=== PATIENT | male | born 2000 | race Hispanic/Latino ===

== ENCOUNTER 2020-03-21 01:50 | Emergency (ER) | payer SELFPAY ==
[2020-03-21] MEDS ORDERED: TETANUS & DIPHTHERIA TOX,ADULT 0.5 ML VIAL ONE (02:30)
[2020-03-21] MEDS ORDERED: LIDOCAINE 1% W/EPI 1:100,000 MDV 20 ML VIAL ONE (03:02)
[2020-03-21] MEDS ORDERED: LIDOCAINE 1% MPF 30 ML VIAL ONE (03:46)
--- NOTE | 2020-03-21 04:06 | ER ---
Nurse's Notes [facility] Name: Soren Castro Age: 19 yrs Sex: Male : 2000 Arrival Date: 03/21/2020 Time: 01:51 Bed 20 Private MD: Diagnosis: Left Leg Laceration Presentation: 03/21 01:58 Chief complaint: Patient states: he cut his left leg cutting a tree on an emergency bb call approx 90 mins ago he states his girlfriend made him come he is not sure if it needs stitches. Coronavirus screen: At this time, the client does not indicate any symptoms associated with coronavirus-19. Ebola Screen: No symptoms or risks identified at this time. Complicating Factors: There are no complicating factors for this patient. Initial Sepsis Screen: Does the patient meet any 2 criteria? No. Patient's initial sepsis screen is negative. Does the patient have a suspected source of infection? No. Patient's initial sepsis screen is negative. Risk Assessment: Do you want to hurt yourself or someone else? Patient reports no desire to harm self or others. Onset of symptoms was March 21, 2020. 01:58 Method Of Arrival: Ambulatory bb 01:58 Acuity: SANTOS 3 bb Triage Assessment: 02:01 General: Appears in no apparent distress. Behavior is calm, cooperative. Pain: Denies bb pain. Injury Description: Laceration sustained to left vogel is 2.6 to 7.5 cm long, not bleeding, was sustained 1-2 hours ago. Historical: - Allergies: 02:00 No Known Allergies; bb - Home Meds: 02:00 None [Active]; bb - PMHx: 02:00 None; bb - PSHx: 02:00 None; bb - Immunization history:: Adult Immunizations up to date, Last tetanus immunization: unknown. - Social history:: Smoking status: Patient reports the use of cigarette tobacco products, smokes one-half pack cigarettes per day, Patient uses alcohol, occasionally. Patient/guardian denies using street drugs. Screenin:02 Abuse screen: Denies threats or abuse. Nutritional screening: No deficits noted. jb4 Tuberculosis screening: No symptoms or risk factors identified. Fall Risk None identified. Assessment: 02:01 General: Appears in no apparent distress. comfortable, Behavior is calm, cooperative, jb4 appropriate for age. Pain: Denies pain. Neuro: Level of Consciousness is awake, alert, obeys commands, Oriented to person, place, time, situation. Cardiovascular: Patient's skin is warm and dry. Respiratory: Airway is patent Respiratory effort is even, unlabored, Respiratory pattern is regular, symmetrical. GI: No signs and/or symptoms were reported involving the gastrointestinal system. : No signs and/or symptoms were reported regarding the genitourinary system. EENT: No signs and/or symptoms were reported regarding the EENT system. Derm: Skin is pink, warm \\T\\ dry. Musculoskeletal: Circulation, motion, and sensation intact. Range of motion: intact in all extremities. Injury Description: Laceration is clean, 2.6 to 7.5 cm long, not bleeding, was sustained 1-2 hours ago. is bleeding a small amount. 02:20 Reassessment: wound care performed, steri strips applied to wound. Pt states " I think jb4 I will just go ahead and get the stitches." provider notified. 02:54 Reassessment: Patient appears in no apparent distress at this time. Patient and/or jb4 family updated on plan of care and expected duration. Pain level reassessed. Patient is alert, oriented x 3, equal unlabored respirations, skin warm/dry/pink. 03:26 Reassessment: Patient and/or family updated on plan of care and expected duration. Pain bb level reassessed. Patient is alert, oriented x 3, equal unlabored respirations, skin warm/dry/pink. 04:22 Reassessment: Patient is alert, oriented x 3, equal unlabored respirations, skin bb warm/dry/pink. bandage clean, dry and intact. Pt verbalized understanding of and agrees to plan of care discharge instructions given pt ambulated with steady gait to exit. Vital Signs: 01:58 BP 148 / 99; Pulse 80; Resp 14 S; Temp 99(TE); Pulse Ox 100% ; Weight 65.77 kg (R); bb Height 5 ft. 6 in. (167.64 cm) (R); Pain 0/10; 02:54 BP 127 / 85; Pulse 77; Resp 16; Pulse Ox 100% on R/A; Pain 0/10; jb4 03:26 BP 118 / 77; Pulse 65; Resp 14 S; Pulse Ox 100% on R/A; bb 01:58 Body Mass Index 23.40 (65.77 kg, 167.64 cm) bb ED Course: 01:51 Patient arrived in ED. am2 01:56 Srinivasa Trotter MD is Attending Physician. 7 01:56 Joey Orozco, RN is Primary Nurse. jb4 02:00 Triage completed. bb 02:00 Arm band placed on Patient placed in an exam room, on a stretcher, on pulse oximetry. bb 02:46 Tib Fib Left XRAY In Process Unspecified. EDMS 03:27 Patient has correct armband on for positive identification. Bed in low position. Call bb light in reach. 03:27 Warm blanket given. bb 04:23 No provider procedures requiring assistance completed. Patient did not have IV access bb during this emergency room visit. Administered Medications: 02:17 Not Given (Duplicate Order): Tetanus-Diphtheria Toxoid Adult 0.5 ml IM once jb4 02:30 Drug: Tetanus-Diphtheria Toxoid Adult 0.5 ml {Wet Pour Mixer: [employer]. Exp: jb4 07/16/2021. Lot #: [id number]. } Route: IM; Site: right deltoid; 04:22 Follow up: Response: No adverse reaction bb Outcome: 04:06 Discharge ordered by . javon 04:23 Discharged to home ambulatory. bb 04:23 Condition: stable 04:23 Discharge instructions given to patient, Instructed on discharge instructions, follow up and referral plans. medication usage, Demonstrated understanding of instructions, follow-up care, medications, Prescriptions given X 1. 04:24 Patient left the ED. bb Signatures: Dispatcher [employer] EDND Kami Do RN RN Joey Walters, RN RN jb4 Nicole Viramontes 2 Srinivasa Trotter MD MD mh7
--- NOTE | 2020-03-21 04:06 | EDPHYS ---
Physician Documentation [facility] Name: Soren Castro Age: 19 yrs Sex: Male : 2000 Arrival Date: 03/21/2020 Time: 01:51 Bed 20 Private MD: ED Physician Srinivasa Trotter HPI: 03/21 02:17 This 19 yrs old Male presents to ER via Ambulatory with complaints of mh7 Laceration To Leg. 02:17 The patient has a laceration related to: working, cutting trees, occurred at work, and mh7 hit by tree branch The injury was accidental. The laceration(s) is(are) located on the left vogel. Onset: The symptoms/episode began/occurred today. Associated signs and symptoms: Pertinent negatives: deformity, dizziness, heavy bleeding, loss of consciousness, numbness distal to injury. Historical: - Allergies: 02:00 No Known Allergies; bb - Home Meds: 02:00 None [Active]; bb - PMHx: 02:00 None; bb - PSHx: 02:00 None; bb - Immunization history:: Adult Immunizations up to date, Last tetanus immunization: unknown. - Social history:: Smoking status: Patient reports the use of cigarette tobacco products, smokes one-half pack cigarettes per day, Patient uses alcohol, occasionally. Patient/guardian denies using street drugs. ROS: 02:17 Constitutional: Negative for fever, chills, and weight loss, Eyes: Negative for injury, mh7 pain, redness, and discharge, ENT: Negative for injury, pain, and discharge, Neck: Negative for injury, pain, and swelling, Cardiovascular: Negative for chest pain, palpitations, and edema, Respiratory: Negative for shortness of breath, cough, wheezing, and pleuritic chest pain, Abdomen/GI: Negative for abdominal pain, nausea, vomiting, diarrhea, and constipation, Back: Negative for injury and pain, : Negative for injury, bleeding, discharge, and swelling, Neuro: Negative for headache, weakness, numbness, tingling, and seizure, Psych: Negative for depression, anxiety, suicide ideation, homicidal ideation, and hallucinations, Allergy/Immunology: Negative for hives, rash, and allergies, Endocrine: Negative for neck swelling, polydipsia, polyuria, polyphagia, and marked weight changes, Hematologic/Lymphatic: Negative for swollen nodes, abnormal bleeding, and unusual bruising. Exam: 02:17 Constitutional: This is a well developed, well nourished patient who is awake, alert, mh7 and in no acute distress. Head/Face: Normocephalic, atraumatic. Chest/axilla: Normal chest wall appearance and motion. Nontender with no deformity. No lesions are appreciated. Cardiovascular: Regular rate and rhythm with a normal S1 and S2. No gallops, murmurs, or rubs. Normal PMI, no JVD. No pulse deficits. Respiratory: Lungs have equal breath sounds bilaterally, clear to auscultation and percussion. No rales, rhonchi or wheezes noted. No increased work of breathing, no retractions or nasal flaring. Abdomen/GI: Soft, non-tender, with normal bowel sounds. No distension or tympany. No guarding or rebound. No evidence of tenderness throughout. 02:17 Neuro: Awake and alert, GCS 15, oriented to person, place, time, and situation. Cranial nerves II-XII grossly intact. Motor strength 5/5 in all extremities. Sensory grossly intact. Cerebellar exam normal. Normal gait. Psych: Awake, alert, with orientation to person, place and time. Behavior, mood, and affect are within normal limits. 02:17 Musculoskeletal/extremity: Extremities: noted in the left vogel: laceration, ROM: intact in all extremities, Circulation is intact in all extremities. Pulses: are normal with no appreciated deficits, Perfusion: the patient is normally perfused throughout, Perfusion: the extremity is normally perfused throughout, Calf tenderness, is absent, Edema, is not appreciated, Sensation intact. Compartment Syndrome exam of affected extremity: is normal. no numbness, no tingling, no sensation deficit, no palor, no weak pulses, Joints: All joints appear normal with full range of motion. Tendon exam: specific tendon testing normal through active and passive range of motion 02:17 Skin: injury, laceration(s), the wound is approximately 4 cm(s), with a depth of 0.25 cm(s), of the left vogel. Vital Signs: 01:58 BP 148 / 99; Pulse 80; Resp 14 S; Temp 99(TE); Pulse Ox 100% ; Weight 65.77 kg (R); bb Height 5 ft. 6 in. (167.64 cm) (R); Pain 0/10; 02:54 BP 127 / 85; Pulse 77; Resp 16; Pulse Ox 100% on R/A; Pain 0/10; jb4 03:26 BP 118 / 77; Pulse 65; Resp 14 S; Pulse Ox 100% on R/A; bb 01:58 Body Mass Index 23.40 (65.77 kg, 167.64 cm) bb Laceration: 04:03 Wound Repair of 4cm ( 1.6in ) subcutaneous laceration to left vogel. Irregularly mh7 shaped.. Distal neuro/vascular/tendon intact. Anesthesia: Local anesthetic administered with 4 mls of 1% lidocaine. Wound prep: Extensive cleansing by nurse, Wound irrigation with saline by me, Wound margin revised minimally, Wound explored extensively, Copious irrigation. Skin closed with 8 3-0 Ethilon using simple sutures and sterile technique. Dressed with Bacitracin, 4x4's, non-adherent dressing. MDM: 02:16 Patient medically screened. [facility] 04:03 Differential diagnosis: superficial laceration, tendon injury, vascular injury. Data [facility] reviewed: vital signs, nurses notes, radiologic studies, plain films. Data interpreted: Pulse oximetry: on room air is 100 %. Interpretation: normal. Counseling: I had a detailed discussion with the patient and/or guardian regarding: the historical points, exam findings, and any diagnostic results supporting the discharge/admit diagnosis, radiology results, the need for outpatient follow up, to return to the emergency department if symptoms worsen or persist or if there are any questions or concerns that arise at home. Response to treatment: the patient's symptoms have markedly improved after treatment. 03/21 02:16 Order name: Tib Fib Left XRAY [facility] Administered Medications: 02:17 Not Given (Duplicate Order): Tetanus-Diphtheria Toxoid Adult 0.5 ml IM once jb4 02:30 Drug: Tetanus-Diphtheria Toxoid Adult 0.5 ml {[employer]: [employer]. Exp: jb4 07/16/2021. Lot #: [id number]. } Route: IM; Site: right deltoid; 04:22 Follow up: Response: No adverse reaction bb Disposition: 03/21/20 04:06 Discharged to Home. Impression: Left Leg Laceration. - Condition is Stable. - Discharge Instructions: Laceration Care, Adult, [id number]. - Prescriptions for Keflex 500 mg Oral Capsule - take 1 capsule by ORAL route every 8 hours for 7 days; 21 capsule. - Medication Reconciliation Form, Thank You Letter, Antibiotic Education, Prescription Opioid Use form. - Follow up: Private Physician; When: 48 Hours; Reason: Wound Recheck, Worsening of condition, Recheck today's complaints. Follow up: Emergency Department; When: 48 Hours; Reason: Wound Recheck, Worsening of condition. - Problem is new. - Symptoms have improved. Signatures: Dispatcher [employer] EDKami Bolton RN RN bb Joey Orozco RN RN jb4 Srinivasa Trotter MD MD mh7 Corrections: (The following items were deleted from the chart) 04:24 04:06 03/21/2020 04:06 Discharged to Home. Impression: Left Leg Laceration. Condition bb is Stable. Forms are Medication Reconciliation Form, Thank You Letter, Antibiotic Education, Prescription Opioid Use. Follow up: Private Physician; When: 48 Hours; Reason: Wound Recheck, Worsening of condition, Recheck today's complaints. Follow up: Emergency Department; When: 48 Hours; Reason: Wound Recheck, Worsening of condition. Problem is new. Symptoms have improved. mh7
[2020-03-21 04:31] VITALS: TEMP 99; O2SAT 100
[2020-03-21 04:33] VITALS: BP 118/77
--- NOTE | 2020-03-21 16:35 | RAD REPORT ---
EXAM DESCRIPTION: Tib Fib Left CLINICAL HISTORY: Trauma COMPARISON: None. FINDINGS: 2 views of the left tibia/fibula. No acute fracture or dislocation. Normal osseous mineral ization. No radiopaque foreign bodies. IMPRESSION: 1. No acute fracture or dislocation. Electronically signed by: Hong Taylor 03/21/2020 2:54 AM CDT Due to temporary technical issues with the PACS/Fluency reporting system, reports are being signed by the in house radiologist without review as a courtesy to ensure prompt reporting. The interpreting r adiologist is fully responsible for the content of the report.
== END 2020-03-21 04:24 | disposition home or self-care (01) ==
LOC: ER 01:50
PROC: 0JQP0ZZ Repair Left Lower Leg Subcutaneous Tissue and Fascia, Open Approach (ICD-10-PCS; principal; 2020-03-21)
DX: S81.812A Laceration without foreign body, left lower leg, initial encounter (principal); W45.8XXA Other foreign body or object entering through skin, initial encounter; Y93.89 Activity, other specified; Y92.9 Unspecified place or not applicable; Y99.0 Civilian activity done for income or pay; Z23 Encounter for immunization
CPT/HCPCS: 90471; 90714; 99284

== ENCOUNTER 2020-04-15 14:41 | Emergency (ER) | payer SELFPAY ==
--- NOTE | 2020-04-15 16:17 | RAD REPORT ---
EXAM DESCRIPTION: RAD - Shoulder Right 2 View - 04/15/2020 4:06 pm CLINICAL HISTORY: PAIN COMPARISON: No comparisons FINDINGS: No acute fracture or dislocation evident.
--- NOTE | 2020-04-15 16:25 | ER ---
Nurse's Notes [facility] Name: Soren Castro Age: 19 yrs Sex: Male : 2000 Arrival Date: 04/15/2020 Time: 14:43 Bed 24 Private MD: Diagnosis: Pain in right shoulder Presentation: 04/15 15:07 Chief complaint: Patient states: right shoulder pain for years, recently has been em acting up, employer wants him checked out, denies trauma. Coronavirus screen: Client denies travel out of the [place] in the last 14 days. Ebola Screen: Patient negative for fever greater than or equal to 101.5 degrees Fahrenheit, and additional compatible Ebola Virus Disease symptoms Patient denies exposure to infectious person. Patient denies travel to an Ebola-affected area in the 21 days before illness onset. No symptoms or risks identified at this time. Initial Sepsis Screen: Does the patient meet any 2 criteria? No. Patient's initial sepsis screen is negative. Does the patient have a suspected source of infection? No. Patient's initial sepsis screen is negative. Risk Assessment: Do you want to hurt yourself or someone else? Patient reports no desire to harm self or others. Onset of symptoms was March 2020. 15:07 Method Of Arrival: Ambulatory em 15:07 Acuity: SANTOS 4 em Historical: - Allergies: 15:08 No Known Allergies; em - Home Meds: 15:08 None [Active]; em - PMHx: 15:08 None; em - PSHx: 15:08 None; em - Immunization history:: Adult Immunizations up to date. - Social history:: Smoking status: Patient reports the use of cigarette tobacco products, denies chronic smoking, but will smoke occasionally. Screenin:59 Abuse screen: Denies threats or abuse. Denies injuries from another. Nutritional ss screening: No deficits noted. Tuberculosis screening: Never had TB. Fall Risk None identified. Assessment: 15:59 General: Appears in no apparent distress. comfortable, Behavior is calm, cooperative, ss Denies fever, feeling ill, fatigue, chills. Pain: Complains of pain in anterior aspect of right shoulder Pain currently is 0 out of 10 on a pain scale. at worst was 4 out of 10 on a pain scale. Pain began "weeks ago" Is episodic, Aggravated by increased activity. Neuro: Level of Consciousness is awake, alert, obeys commands, Oriented to person, place, time, situation. Cardiovascular: Pulses are palpable in right radial artery and left radial artery. Respiratory: Airway is patent Respiratory effort is even, unlabored, Respiratory pattern is regular, symmetrical. EENT: Nares are clear. Derm: Skin is intact, is healthy with good turgor, Skin is dry, Skin is pink, warm \\T\\ dry. normal. Musculoskeletal: Circulation, motion, and sensation intact. Range of motion: intact in all extremities, Swelling absent. Vital Signs: 15:07 BP 133 / 77; Pulse 71; Resp 18; Temp 98.7; Pulse Ox 100% on R/A; Weight 65.77 kg; em Height 5 ft. 7 in. (170.18 cm); Pain 4/10; 15:07 Body Mass Index 22.71 (65.77 kg, 170.18 cm) em ED Course: 14:43 Patient arrived in ED. ag5 15:08 Triage completed. em 15:08 Arm band placed on. em 15:11 Jen[facility] Shukla [facility]-C [facility]. kb 15:11 Tone Mustafa MD is Attending Physician. kb 15:16 Note: WAITING FOR THE PATIENT TO GET A ER BED TO DO THE EXAM.. ls3 15:56 Meron Asher, SELWYN is Primary Nurse. ss 15:59 Patient has correct armband on for positive identification. Bed in low position. Call ss light in reach. 16:07 Shoulder Right (2 View) XRAY In Process Unspecified. EDMS 16:39 No provider procedures requiring assistance completed. Patient did not have IV access ss during this emergency room visit. Administered Medications: No medications were administered Outcome: 16:25 Discharge ordered by MD. kb 16:39 Discharged to home ambulatory. ss 16:39 Condition: good 16:39 Discharge instructions given to patient, Instructed on discharge instructions, follow up and referral plans. Demonstrated understanding of instructions, follow-up care. 16:40 Patient left the ED. ss Signatures: Dispatcher [employer] EDMS Jeni Shukla FNP-C FNP-Ckb Munoz, Edgar, RN RN Meron Asher RN RN Lisbeth Landin ls3 Vickie Saldana ag5
--- NOTE | 2020-04-15 16:25 | EDPHYS ---
Physician Documentation [facility] Name: Soren Castro Age: 19 yrs Sex: Male : 2000 Arrival Date: 04/15/2020 Time: 14:43 Bed 24 Private MD: ED Physician Tone Mustafa HPI: 04/15 16:23 This 19 yrs old Male presents to ER via Ambulatory with complaints of Shoulder kb Pain. 16:23 The patient or guardian complains of pain, that is acute. right shoulder. Context: The kb problem was sustained at work, resulted from repetitive motion, The patient reports no decreased range of motion. The patient reports no obvious deformity. Onset: The symptoms/episode began/occurred last week. Modifying factors: the symptoms are alleviated by nothing. The symptoms are aggravated by nothing. Associated signs and symptoms: The patient has no apparent associated signs or symptoms. Severity of symptoms: At their worst the symptoms were moderate, in the emergency department the symptoms are unchanged. Treatment prior to arrival includes: no previous treatment. The patient has experienced a previous episode. The patient has not recently seen a physician. Pt reports he had a rotator cuff injury years ago. States he recently was working and felt a pop in shoulder. Has had pain to posterior right shoulder since then. Historical: - Allergies: 15:08 No Known Allergies; em - Home Meds: 15:08 None [Active]; em - PMHx: 15:08 None; em - PSHx: 15:08 None; em - Immunization history:: Adult Immunizations up to date. - Social history:: Smoking status: Patient reports the use of cigarette tobacco products, denies chronic smoking, but will smoke occasionally. ROS: 16:22 Constitutional: Negative for fever, chills, and weight loss, Cardiovascular: Negative kb for chest pain, palpitations, and edema, Respiratory: Negative for shortness of breath, cough, wheezing, and pleuritic chest pain, Abdomen/GI: Negative for abdominal pain, nausea, vomiting, diarrhea, and constipation, Back: Negative for injury and pain, Skin: Negative for injury, rash, and discoloration, Neuro: Negative for headache, weakness, numbness, tingling, and seizure. 16:22 MS/extremity: Positive for pain, of the posterior aspect of right shoulder. Exam: 16:23 Constitutional: This is a well developed, well nourished patient who is awake, alert, kb and in no acute distress. Head/Face: Normocephalic, atraumatic. Chest/axilla: Normal chest wall appearance and motion. Nontender with no deformity. No lesions are appreciated. Cardiovascular: Regular rate and rhythm with a normal S1 and S2. No gallops, murmurs, or rubs. Normal PMI, no JVD. No pulse deficits. Respiratory: Lungs have equal breath sounds bilaterally, clear to auscultation and percussion. No rales, rhonchi or wheezes noted. No increased work of breathing, no retractions or nasal flaring. Abdomen/GI: Soft, non-tender, with normal bowel sounds. No distension or tympany. No guarding or rebound. No evidence of tenderness throughout. Skin: Warm, dry with normal turgor. Normal color with no rashes, no lesions, and no evidence of cellulitis. MS/ Extremity: Pulses equal, no cyanosis. Neurovascular intact. Full, normal range of motion. Neuro: Awake and alert, GCS 15, oriented to person, place, time, and situation. Cranial nerves II-XII grossly intact. Motor strength 5/5 in all extremities. Sensory grossly intact. Cerebellar exam normal. Normal gait. Vital Signs: 15:07 BP 133 / 77; Pulse 71; Resp 18; Temp 98.7; Pulse Ox 100% on R/A; Weight 65.77 kg; em Height 5 ft. 7 in. (170.18 cm); Pain 4/10; 15:07 Body Mass Index 22.71 (65.77 kg, 170.18 cm) em MDM: 15:45 Patient medically screened. kb 16:21 Data reviewed: vital signs, nurses notes. Data interpreted: Pulse oximetry: on room air kb is 100 %. Interpretation: normal. Counseling: I had a detailed discussion with the patient and/or guardian regarding: the historical points, exam findings, and any diagnostic results supporting the discharge/admit diagnosis, radiology results, the need for outpatient follow up, a orthopedic surgeon, to return to the emergency department if symptoms worsen or persist or if there are any questions or concerns that arise at home. 04/15 15:09 Order name: Shoulder Right (2 View) XRAY; Complete Time: 16:18 em Administered Medications: No medications were administered Disposition: 04/16 13:13 Co-signature as Attending Physician, Tone Mustafa MD I agree with the assessment and kdr plan of care. Disposition: 04/15/20 16:25 Discharged to Home. Impression: Pain in right shoulder. - Condition is Stable. - Discharge Instructions: Shoulder Pain, [id number]. - Medication Reconciliation Form, Thank You Letter, Antibiotic Education, Prescription Opioid Use form. - Follow up: Emergency Department; When: As needed; Reason: Worsening of condition. Follow up: Private Physician; When: 2 - 3 days; Reason: Recheck today's complaints, Continuance of care, Re-evaluation by your physician. Signatures: Dispatcher [employer] EDMS Jeni Shukla, END STAPLER-C END STAPLER-Tone Curiel MD MD [facility] Liban Winston, SELWYN RN em Meron Asher RN RN ss Corrections: (The following items were deleted from the chart) 04/15 16:40 16:25 04/15/2020 16:25 Discharged to Home. Impression: Pain in right shoulder. ss Condition is Stable. Forms are Medication Reconciliation Form, Thank You Letter, Antibiotic Education, Prescription Opioid Use. Follow up: Emergency Department; When: As needed; Reason: Worsening of condition. Follow up: Private Physician; When: 2 - 3 days; Reason: Recheck today's complaints, Continuance of care, Re-evaluation by your physician. kb
[2020-04-15 16:48] VITALS: BP 133/77; TEMP 98.7; O2SAT 100
== END 2020-04-15 16:40 | disposition home or self-care (01) ==
LOC: ER 14:41
DX: M25.511 Pain in right shoulder (principal); Z72.0 Tobacco use
CPT/HCPCS: 99283

== ENCOUNTER 2020-10-14 23:58 | Emergency (ER) | payer SELFPAY ==
[2020-10-15 01:53] LABS: Absolute Lymphocytes (CBC) 2.3 K/uL (0.7-4.9); Basophils % 1.2 % (0-1.3); Hematocrit 42.9 % (39.6-49.0); Lymphocytes % 32.6 % (15.3-44.8); MPV 8.6 fL (7.6-11.3); RBC Red Blood Cell Count 5.03 M/uL (4.33-5.43)
[2020-10-15] MEDS ORDERED: MORPHINE 4 MG/ML SYR ONE (02:10)
[2020-10-15] MEDS ORDERED: ONDANSETRON 4 MG/2 ML VIAL ONE (02:10)
[2020-10-15] MEDS ORDERED: NA CHLORIDE 0.9% 1,000 ML ONE (02:11)
[2020-10-15 02:13] LABS: ALT/SGPT 20 U/L (12-78); AST/SGOT 14 U/L (15-37); Albumin 4.1 g/dL (3.4-5.0); Alkaline Phosphatase 78 U/L (45-117); BUN Blood Urea Nitrogen 13 mg/dL (7-18); Bicarbonate 26 mmol/L (21-32); Bilirubin Direct < 0.1 mg/dL (0-0.2); Bilirubin Total 0.3 mg/dL (0.2-1.0); Glucose Level 97 mg/dL (74-106); Lipase 73 U/L (73-393); Potassium 3.5 mmol/L (3.5-5.1); Protein, Total 7.9 g/dL (6.4-8.2); Sodium Level 144 mmol/L (136-145)
--- NOTE | 2020-10-15 03:54 | ER ---
Nurse's Notes [facility] Name: Soren Castro Age: 19 yrs Sex: Male : 2000 Arrival Date: 10/15/2020 Time: 00:03 Bed 14 Private MD: Diagnosis: Flank Pain;Lower Back Pain Presentation: 10/15 00:03 Chief complaint: Patient states: back pain for 2-3 weeks worse tonight, numbness and sf tingling in fingers and toes now resolved. Coronavirus screen: Client denies travel out of the [place] in the last 14 days. At this time, the client does not indicate any symptoms associated with coronavirus-19. Ebola Screen: Patient negative for fever greater than or equal to 101.5 degrees Fahrenheit, and additional compatible Ebola Virus Disease symptoms Patient denies exposure to infectious person. Patient denies travel to an Ebola-affected area in the 21 days before illness onset. No symptoms or risks identified at this time. Initial Sepsis Screen: Does the patient meet any 2 criteria? No. Patient's initial sepsis screen is negative. Does the patient have a suspected source of infection? No. Patient's initial sepsis screen is negative. Risk Assessment: Do you want to hurt yourself or someone else? Patient reports no desire to harm self or others. Onset of symptoms was October 15, 2020. 00:03 Method Of Arrival: EMS: [email or web address] 00:03 Acuity: SANTOS 4 sf Triage Assessment: 00:07 General: Appears uncomfortable, lying in a prone position for comfort. Behavior is sf calm, cooperative. Pain: Complains of pain in back Pain currently is 6 out of 10 on a pain scale. at worst was 10 out of 10 on a pain scale. EENT: No deficits noted. No signs and/or symptoms were reported regarding the EENT system. Neuro: Level of Consciousness is awake, alert, Oriented to person, place, time, situation. Cardiovascular: No deficits noted. Respiratory: No deficits noted. GI: No deficits noted. No signs and/or symptoms were reported involving the gastrointestinal system. : No deficits noted. No signs and/or symptoms were reported regarding the genitourinary system. Derm: No deficits noted. No signs and/or symptoms reported regarding the dermatologic system. Musculoskeletal: Reports numbness in bilateral fingers and bilateral toes, but is now resolved pain in back. Historical: - Allergies: 00:07 No Known Allergies; sf - Home Meds: 00:07 Tramadol Oral [Active]; Melatonin Oral [Active]; sf - PMHx: 00:07 Scoliosis; sf - PSHx: 00:07 None; sf - Immunization history:: Adult Immunizations up to date. - Social history:: Smoking status: unknown Patient/guardian denies using alcohol, street drugs, IV drugs. Screenin:10 Abuse screen: Denies threats or abuse. Denies injuries from another. Nutritional sf screening: No deficits noted. Tuberculosis screening: No symptoms or risk factors identified. Fall Risk No fall in past 12 months (0 pts). No secondary diagnosis (0 pts). No IV (0 pts). Ambulatory Aid- None/Bed Rest/Nurse Assist (0 pts). Gait- Impaired (20 pts.). Mental Status- Oriented to own ability (0 pts). Total Bland Fall Scale indicates No Risk (0-24 pts). Assessment: 00:10 Reassessment: SEE TRIAGE ASSESSMENT. sf 01:10 Reassessment: Patient appears in no apparent distress at this time. No changes from sf previously documented assessment. Patient and/or family updated on plan of care and expected duration. Pain level reassessed. Patient is alert, oriented x 3, equal unlabored respirations, skin warm/dry/pink. 02:02 Reassessment: Patient appears in no apparent distress at this time. No changes from sf previously documented assessment. Patient and/or family updated on plan of care and expected duration. Pain level reassessed. Patient is alert, oriented x 3, equal unlabored respirations, skin warm/dry/pink. 03:07 Reassessment: Patient appears in no apparent distress at this time. Patient and/or family updated on plan of care and expected duration. Pain level reassessed. Patient is alert, oriented x 3, equal unlabored respirations, skin warm/dry/pink. 03:27 Reassessment: Given water per request. sf Vital Signs: 00:00 BP 113 / 54; Pulse 85; Resp 16; Pulse Ox 99% ; sf 00:03 BP 132 / 76; Pulse 85; Resp 16; Temp 97.5; Pulse Ox 99% ; Weight 72.57 kg; Height 5 ft. sf 8 in. (172.72 cm); Pain 6/10; 01:00 BP 103 / 55; Pulse 79; Resp 16; Pulse Ox 97% ; sf 01:30 BP 107 / 74; Pulse 80; Resp 16; Pulse Ox 97% ; sf 03:50 BP 108 / 68; Pulse 78; Resp 18; Pulse Ox 98% on R/A; ea 00:03 Body Mass Index 24.33 (72.57 kg, 172.72 cm) ED Course: 00:03 Patient arrived in ED. sf 00:05 Triage completed. sf 00:08 Srinivasa Trotter MD is Attending Physician. 7 00:09 Arm band placed on. sf 00:10 Patient has correct armband on for positive identification. Bed in low position. Call sf light in reach. Side rails up X2. Adult w/ patient. Pulse ox on. NIBP on. Door closed. Noise minimized. Visitors limited. Lights dimmed. Warm blanket given. Verbal reassurance given. 01:16 Trent Seo RN is Primary Nurse. sf 01:40 Initial lab(s) drawn, by pr, sent to lab. Inserted saline lock: 20 gauge in left sf forearm, using aseptic technique. Blood collected. 02:00 CT Stone Protocol Sent. sf 02:29 CT Stone Protocol In Process Unspecified. EDMS 04:02 No provider procedures requiring assistance completed. IV discontinued, intact, ea bleeding controlled, No redness/swelling at site. Pressure dressing applied. Administered Medications: 01:57 Drug: NS 0.9% 1000 ml Route: IV; Rate: 1000 ml; Site: left forearm; sf 03:06 Follow up: Response: No adverse reaction; IV Status: Completed infusion; IV Intake: sf 1000ml 01:58 Drug: Zofran (Ondansetron) 4 mg Route: IVP; Site: left forearm; sf 03:06 Follow up: Response: No adverse reaction; Pain is decreased sf 01:59 Drug: morphine 4 mg Route: IVP; Site: left forearm; sf 03:06 Follow up: Response: No adverse reaction; Pain is decreased sf Intake: 03:06 IV: 1000ml; Total: 1000ml. Outcome: 03:53 Discharge ordered by . Sherri 04:02 Discharged to home ambulatory, with family. ea 04:02 Condition: stable 04:02 Discharge instructions given to patient, family, Instructed on discharge instructions, follow up and referral plans. medication usage, Demonstrated understanding of instructions, follow-up care, medications, Prescriptions given X 2. 04:04 Patient left the ED. verna Signatures: Dispatcher [employer] EDBuffy Null RN Srinivasa Cassidy ea, MD MD mh7 Trent Seo RN RN
--- NOTE | 2020-10-15 03:54 | EDPHYS ---
Physician Documentation [facility] Name: Soren Castro Age: 19 yrs Sex: Male : 2000 Arrival Date: 10/15/2020 Time: 00:03 Bed 14 Private MD: ED Physician Srinivasa Trotter HPI: 10/15 03:46 This 19 yrs old Male presents to ER via EMS with complaints of Lower Back Pain.mh7 03:47 The patient complains of pain in the left flank. The pain does not radiate. mh7 03:47 Onset: The symptoms/episode began/occurred 2 week(s) ago. Modifying factors: The mh7 symptoms are alleviated by nothing. the symptoms are aggravated by movement, palpation/percussion. 03:47 Associated signs and symptoms: Pertinent negatives: diarrhea, dizziness, dysuria, mh7 fever, urinary frequency, headache, hematuria, nausea, pain radiating to the lower extremities, vomiting. Severity of pain: At its worst the pain was moderate last night, in the emergency department the pain has improved moderately. The patient has experienced similar episodes in the past, several times. Historical: - Allergies: 00:07 No Known Allergies; sf - Home Meds: 00:07 Tramadol Oral [Active]; Melatonin Oral [Active]; sf - PMHx: 00:07 Scoliosis; sf - PSHx: 00:07 None; sf - Immunization history:: Adult Immunizations up to date. - Social history:: Smoking status: unknown Patient/guardian denies using alcohol, street drugs, IV drugs. ROS: 03:47 Constitutional: Negative for fever, chills, and weight loss, Eyes: Negative for injury, mh7 pain, redness, and discharge, ENT: Negative for injury, pain, and discharge, Neck: Negative for injury, pain, and swelling, Cardiovascular: Negative for chest pain, palpitations, and edema, Respiratory: Negative for shortness of breath, cough, wheezing, and pleuritic chest pain, Abdomen/GI: Negative for abdominal pain, nausea, vomiting, diarrhea, and constipation, : Negative for injury, bleeding, discharge, and swelling, MS/Extremity: Negative for injury and deformity, Skin: Negative for injury, rash, and discoloration, Neuro: Negative for headache, weakness, numbness, tingling, and seizure, Psych: Negative for depression, anxiety, suicide ideation, homicidal ideation, and hallucinations, Allergy/Immunology: Negative for hives, rash, and allergies, Endocrine: Negative for neck swelling, polydipsia, polyuria, polyphagia, and marked weight changes, Hematologic/Lymphatic: Negative for swollen nodes, abnormal bleeding, and unusual bruising. Exam: 03:47 Constitutional: This is a well developed, well nourished patient who is awake, alert, mh7 and in no acute distress. Head/Face: Normocephalic, atraumatic. Eyes: Pupils equal round and reactive to light, extra-ocular motions intact. Lids and lashes normal. Conjunctiva and sclera are non-icteric and not injected. Cornea within normal limits. Periorbital areas with no swelling, redness, or edema. Neck: Trachea midline, no thyromegaly or masses palpated, and no cervical lymphadenopathy. Supple, full range of motion without nuchal rigidity, or vertebral point tenderness. No Meningismus. Chest/axilla: Normal chest wall appearance and motion. Nontender with no deformity. No lesions are appreciated. Cardiovascular: Regular rate and rhythm with a normal S1 and S2. No gallops, murmurs, or rubs. Normal PMI, no JVD. No pulse deficits. Respiratory: Lungs have equal breath sounds bilaterally, clear to auscultation and percussion. No rales, rhonchi or wheezes noted. No increased work of breathing, no retractions or nasal flaring. Abdomen/GI: Soft, non-tender, with normal bowel sounds. No distension or tympany. No guarding or rebound. No evidence of tenderness throughout. 03:47 Skin: Warm, dry with normal turgor. Normal color with no rashes, no lesions, and no evidence of cellulitis. MS/ Extremity: Pulses equal, no cyanosis. Neurovascular intact. Full, normal range of motion. Neuro: Awake and alert, GCS 15, oriented to person, place, time, and situation. Cranial nerves II-XII grossly intact. Motor strength 5/5 in all extremities. Sensory grossly intact. Cerebellar exam normal. Normal gait. Psych: Awake, alert, with orientation to person, place and time. Behavior, mood, and affect are within normal limits. 03:47 Back: ROM is painful, with all movement, scoliosis that is moderate, CVA tenderness, that is moderate, is noted on the left, muscle spasm, is appreciated in the left flank, Straight leg raises: of both lower extremities does not illicit pain. Vital Signs: 00:00 BP 113 / 54; Pulse 85; Resp 16; Pulse Ox 99% ; sf 00:03 BP 132 / 76; Pulse 85; Resp 16; Temp 97.5; Pulse Ox 99% ; Weight 72.57 kg; Height 5 ft. sf 8 in. (172.72 cm); Pain 6/10; 01:00 BP 103 / 55; Pulse 79; Resp 16; Pulse Ox 97% ; sf 01:30 BP 107 / 74; Pulse 80; Resp 16; Pulse Ox 97% ; sf 03:50 BP 108 / 68; Pulse 78; Resp 18; Pulse Ox 98% on R/A; ea 00:03 Body Mass Index 24.33 (72.57 kg, 172.72 cm) sf MDM: 03:47 Differential diagnosis: nephrolithiasis, pyelonephritis, UTI. Data reviewed: vital [facility] signs, nurses notes, lab test result(s), CBC, electrolytes, urinalysis, radiologic studies, CT scan. Data interpreted: Pulse oximetry: on room air is 97 %. Interpretation: normal. Counseling: I had a detailed discussion with the patient and/or guardian regarding: the historical points, exam findings, and any diagnostic results supporting the discharge/admit diagnosis, lab results, radiology results, the need for outpatient follow up, to return to the emergency department if symptoms worsen or persist or if there are any questions or concerns that arise at home. Response to treatment: the patient's symptoms have resolved after treatment, the patient's blood pressure is in an acceptable range, mental status has returned to baseline, the patient no longer shows bradycardia, the patient is not short of breath, the patient is not tachycardic, the patient's pain is gone, the patient's temperature has normalized. 03:53 Patient medically screened. [facility] 10/15 01:26 Order name: Basic Metabolic Panel; Complete Time: 03: [facility] 10/15 00: Order name: CBC with Diff; Complete Time: : [facility] 10/15 00:26 Order name: Hepatic Function; Complete Time: : [facility] 10/15 00: Order name: Lipase; Complete Time: : [facility] 10/15 01:28 Order name: CT Stone Protocol [facility] 10/15 01:26 Order name: IV Saline Lock; Complete Time: 01:43 [facility] 10/15 01:26 Order name: Labs collected and sent; Complete Time: 01:44 [facility] 10/15 03:23 Order name: Urine Dipstick-Ancillary (obtain specimen); Complete Time: 03:27 Administered Medications: 01:57 Drug: NS 0.9% 1000 ml Route: IV; Rate: 1000 ml; Site: left forearm; sf 03:06 Follow up: Response: No adverse reaction; IV Status: Completed infusion; IV Intake: sf 1000ml 01:58 Drug: Zofran (Ondansetron) 4 mg Route: IVP; Site: left forearm; sf 03:06 Follow up: Response: No adverse reaction; Pain is decreased sf 01:59 Drug: morphine 4 mg Route: IVP; Site: left forearm; sf 03:06 Follow up: Response: No adverse reaction; Pain is decreased sf Disposition: 10/15/20 03:53 Discharged to Home. Impression: Flank Pain, Lower Back Pain. - Condition is Stable. - Discharge Instructions: Back Pain, Adult, [id number], Flank Pain, [id number]. - Prescriptions for ketorolac 10 mg Oral tablet - take 1 tablet by ORAL route every 8 hours As needed not to exceed 40 mg in 24hrs; 12 tablet. Robaxin 500 mg Oral Tablet - take 1 tablet by ORAL route every 6 hours As needed; 20 tablet. - Medication Reconciliation Form, Thank You Letter, Antibiotic Education, Prescription Opioid Use, Work release form form. - Follow up: Private Physician; When: 1 - 2 days; Reason: Worsening of condition, Recheck today's complaints, Continuance of care, Re-evaluation by your physician. - Problem is an acute exacerbation. - Symptoms have improved. Signatures: Dispatcher [employer] EDBuffy Null RN RN ea Holmes, Maurice, MD MD [facility] Trent Seo RN RN sf Corrections: (The following items were deleted from the chart) 04:04 03:53 10/15/2020 03:53 Discharged to Home. Impression: Flank Pain; Lower Back Pain. ea Condition is Stable. Forms are Work release form, Medication Reconciliation Form, Thank You Letter, Antibiotic Education, Prescription Opioid Use. Follow up: Private Physician; When: 1 - 2 days; Reason: Worsening of condition, Recheck today's complaints, Continuance of care, Re-evaluation by your physician. Problem is an acute exacerbation. Symptoms have improved. mh7
[2020-10-15 04:23] VITALS: TEMP 97.5
[2020-10-15 04:24] VITALS: O2SAT 97
[2020-10-15 04:25] VITALS: BP 107/74
--- NOTE | 2020-10-15 22:19 | RAD REPORT ---
EXAM DESCRIPTION: CT - Stone Protocol - 10/15/2020 6:40 am CLINICAL HISTORY: FLANK PAIN COMPARISON: None Available. TECHNIQUE: CT of the abdomen and pelvis without IV contrast. Evaluation of the solid organs and vasc ulature is suboptimal due to lack of IV contrast. This exam was performed according to our department al dose-optimization program, which includes automated exposure control, adjustment of the mA and/or kV according to patient size and/or use of iterative reconstruction technique. FINDINGS: Lung Bases: The visualized lung bases are clear. Bones: Levoconvex curvature of the thoracolumbar spine. Abdomen: Liver: The liver has normal size and density. Gallbladder: No calcified gallstones. Spleen, Pancreas, and Adrenal Glands: The spleen, pancreas, and adrenal glands are unremarkable. Kidneys: The kidneys have normal size without evidence of hydronephrosis. No obstructing ureteral ilene culi. Vasculature: The aorta and IVC have normal caliber and position. Stomach: The stomach and duodenum have normal course. Other: No free intraperitoneal air. No free fluid or lymphadenopathy. Pelvis: Bladder: Urinary bladder is unremarkable. Bowel: No dilated loops of large or small bowel. Appendix: Not identified. Pelvis: Prostate is not enlarged. IMPRESSION: 1. No acute inflammatory or obstructive process identified. Electronically signed by: Hong Taylor 10/15/2020 2:46 AM CDT Due to temporary technical issues with the PACS/Fluency reporting system, reports are being signed by the in house radiologists without review as a courtesy to insure prompt reporting. The interpreting radiologist is fully responsible for the content of the report.
[2020-10-19 16:47] LABS: Urine Blood NEGATIVE (Negative); Urine Glucose NEGATIVE (Negative); Urine Protein NEGATIVE (Negative); Urine pH 6.5 (5.0-7.0)
== END 2020-10-15 04:04 | disposition home or self-care (01) ==
LOC: ER 23:58
DX: M54.5 Low back pain (principal); R10.9 Unspecified abdominal pain; M41.9 Scoliosis, unspecified
CPT/HCPCS: 36415; 74176; 76377; 80048; 80076; 81003; 83690; 85025; 96361; 96374; 96375; 99284; J2405; J7030

== ENCOUNTER 2024-04-29 14:59 | Emergency (ER) | payer SELFPAY ==
[2024-04-29] MEDS ORDERED: ACETAMINOPHEN 500 MG TAB ONE (15:21)
[2024-04-29 15:41] LABS: Specific Gravity < 1.005 (1.005-1.030); Sqamous Epithelial <5 /HPF (None Seen); Urine Bacteria <20 /HPF (<20); Urine Bilirubin NEGATIVE (Negative); Urine Blood Negative (Negative); Urine Clarity Clear (Clear); Urine Color Colorless (Yellow); Urine Culture Reflex Order NOT NEEDED; Urine Glucose NEGATIVE (Negative); Urine Ketones NEGATIVE (Negative); Urine Microscopic Reflex YN ORDER UMIC; Urine Nitrite NEGATIVE (Negative); Urine Protein NEGATIVE (Negative); Urine RBC <5 /HPF (None Seen); Urine Urobilinogen Normal (Normal); Urine WBC None Seen /HPF (<5)
[2024-04-29 15:59] LABS: SARS-CoV-2 Antigen CONTROL BLUE LINE VIS/BG OK; SARS-CoV-2 Antigen Rapid Res Negative (Negative)
--- NOTE | 2024-04-29 16:55 | ER ---
Nurse's Notes [facility] Name: Soren Castro Age: 23 yrs Sex: Male : 2000 Arrival Date: 04/29/2024 Time: 14:59 Bed DX4 Private MD: Diagnosis: Viral infection, unspecified Presentation: 04/29 15:20 Chief complaint: Patient states: Body aches, fatigue, and diarrhea onset this morning. cm10 Coronavirus screen: Client denies travel out of the [place] in the last 14 days. Ebola Screen: Patient denies travel to an Ebola-affected area in the 21 days before illness onset. No symptoms or risks identified at this time. Initial Sepsis Screen: Does the patient meet any 2 criteria? Temp <36.0*C (96.8*F)) or > 38.3*C (100.9*F). HR > 90 bpm. Does the patient have a suspected source of infection? No. Patient's initial sepsis screen is negative. Risk Assessment: Do you want to hurt yourself or someone else? Patient reports no desire to harm self or others. Onset of symptoms was April 29, 2024. 15:20 Method Of Arrival: Ambulatory cm10 15:20 Acuity: SANTOS 4 cm10 Triage Assessment: 15:22 General: Appears in no apparent distress. uncomfortable, Behavior is calm, cooperative. cm10 Neuro: No deficits noted. Level of Consciousness is awake, alert, obeys commands, Oriented to person, place, time, situation, Appropriate for age. Respiratory: No deficits noted. Airway is patent Respiratory effort is even, unlabored, Respiratory pattern is regular, symmetrical. 17:06 Pain: Denies pain. ll1 Historical: - Allergies: 15:22 No Known Allergies; cm10 - PMHx: 15:22 scoliosis; cm10 - PSHx: 15:22 None; cm10 - Immunization history:: Adult Immunizations up to date. - Infectious Disease History:: Denies. - Social history:: Smoking status: unknown. Screenin:06 [facility] ED Fall Risk Assessment (Adult) History of falling in the last 3 months, ll1 including since admission No falls in past 3 months (0 pts) Confusion or Disorientation No (0 pts) Intoxicated or Sedated No (0 pts) Impaired Gait No (0 pts) Mobility Assist Device Used No (0 pt) Altered Elimination No (0 pt) Score/Fall Risk Level 0 - 2 = Low Risk Maintained a safe environment, Hourly rounding (assess needs \T\ fall precautionary measures) done. Abuse screen: Denies threats or abuse. Nutritional screening: No deficits noted. Tuberculosis screening: No symptoms or risk factors identified. Assessment: 17:02 Reassessment: No changes from previously documented assessment. Patient and/or family ll1 updated on plan of care and expected duration. Pain level reassessed. Patient is alert, oriented x 3, equal unlabored respirations, skin warm/dry/pink. Vital Signs: 15:20 BP 145 / 102; Pulse 101; Resp 18; Temp 101(O); Pulse Ox 100% on R/A; Weight 65.77 kg; cm10 Height 5 ft. 7 in. ; Pain 8/10; 17:01 BP 117 / 85; Pulse 99; Resp 17; Temp 100.2(O); Pulse Ox 100% ; ll1 15:20 Body Mass Index 22.71 (65.77 kg, 170.18 cm) cm10 15:20 Pain Scale: Adult cm10 ED Course: 15:01 Patient arrived in ED. ra3 15:21 Jeni Shukla FNP-C [facility]. kb 15:21 Ba Marinelli MD is Attending Physician. kb 15:21 Triage completed. cm10 15:23 Arm band placed on right wrist. Patient placed in waiting room. cm10 15:30 Urinalysis w/ reflexes Sent. cm10 15:30 Strep Sent. cm10 15:30 SARS RAPID Sent. cm10 15:30 Flu Sent. cm10 15:30 Urine collected: clean catch specimen, clear, COVID swab sent to lab. Flu and/or RSV cm10 swab sent to lab. Strep swab sent to lab. 17:06 Provided Education on: return to ED for worsening symptoms. ll1 17:06 Patient has correct armband on for positive identification. ll1 17:06 No provider procedures requiring assistance completed. Patient did not have IV access ll1 during this emergency room visit. Administered Medications: 15:30 Drug: Acetaminophen PO 1000 mg PO once Route: PO; cm10 17:05 Follow up: Response: No adverse reaction; Temperature is decreased ll1 Medication: 17:06 VIS not applicable for this client. ll1 Outcome: 16:55 Discharge ordered by . luis enrique 17:06 Patient left the ED. ll1 17:06 Discharged to home ambulatory, ll1 17:06 Condition: stable 17:06 Discharge instructions given to patient, Instructed on discharge instructions, follow up and referral plans. Demonstrated understanding of instructions, follow-up care, Signatures: Jeni Shukla, AIR CONDITIONING ENGINEER-C ANDRÉS-Naseem Reyes RN RN ll1 Selina Brooks RN RN cm10 Arlene Rivera 3
--- NOTE | 2024-04-29 16:55 | EDPHYS ---
Physician Documentation [facility] Name: Soren Castro Age: 23 yrs Sex: Male : 2000 Arrival Date: 04/29/2024 Time: 14:59 Bed DX4 Private MD: ED Physician Ba Marinelli HPI: 04/29 18:16 This 23 yrs old Male presents to ER via Ambulatory with complaints of Cold kb Symptoms - Covid test. 18:16 Pt is a 23 year old female who presents for bodyaches, cough, sore throat, diarrhea and kb fever that started this morning. Reports right lateral abd pain that has been intermittent for a long time. Denies n/v. Historical: - Allergies: 15:22 No Known Allergies; cm10 - PMHx: 15:22 scoliosis; cm10 - PSHx: 15:22 None; cm10 - Immunization history:: Adult Immunizations up to date. - Infectious Disease History:: Denies. - Social history:: Smoking status: unknown. ROS: 18:15 Constitutional: As per HPI kb Exam: 18:15 Constitutional: This is a well developed, well nourished patient who is awake, alert, kb and in no acute distress. Head/Face: Normocephalic, atraumatic. ENT: Moist Mucous membranes Cardiovascular: Regular rate Respiratory: Respirations even and unlabored. No increased work of breathing. Talking in full sentences Abdomen/GI: Soft, non-tender. No distention Back: No spinal tenderness. No costovertebral tenderness. Full range of motion. Skin: Warm, dry with normal turgor. Normal color. MS/ Extremity: Pulses equal, no cyanosis. Neurovascular intact. Full, normal range of motion. Neuro: Awake and alert, GCS 15, oriented to person, place, time, and situation. Vital Signs: 15:20 BP 145 / 102; Pulse 101; Resp 18; Temp 101(O); Pulse Ox 100% on R/A; Weight 65.77 kg; cm10 Height 5 ft. 7 in. ; Pain 8/10; 17:01 BP 117 / 85; Pulse 99; Resp 17; Temp 100.2(O); Pulse Ox 100% ; ll1 15:20 Body Mass Index 22.71 (65.77 kg, 170.18 cm) cm10 15:20 Pain Scale: Adult cm10 MDM: 15:21 Medical Screening Exam initiated kb 18:15 Differential diagnosis: flu, covid, uri, strep, uti, kidney stone. Data reviewed: vital kb signs, nurses notes. I considered the following discharge prescriptions or medication management in the emergency department I discussed and recommended Over The Counter medications, Antibiotics: At this time antibiotics are not recommended. Counseling: I had a detailed discussion with the patient and/or guardian regarding the historical points, exam findings, and any diagnostic results supporting the discharge/admit diagnosis, lab results, the need for outpatient follow up, a family practitioner, to return to the emergency department if symptoms worsen or persist or if there are any questions or concerns that arise at home. 18:19 Test considered but Not performed: CT: ct considered but pt has no abd tenderness. kb 04/29 15:22 Order name: Flu; Complete Time: 16:00 cm10 04/29 15:22 Order name: SARS RAPID; Complete Time: 16:00 cm10 04/29 15:23 Order name: Strep cm10 04/29 15:23 Order name: Urinalysis w/ reflexes; Complete Time: 15:43 cm10 04/29 16:02 Order name: Throat Culture EDMS 04/29 16:56 Order name: Vital Signs; Complete Time: 17:05 kb Administered Medications: 15:30 Drug: Acetaminophen PO 1000 mg PO once Route: PO; cm10 17:05 Follow up: Response: No adverse reaction; Temperature is decreased ll1 Disposition: 04/30 07:42 Co-signature as Attending Physician, Ba Marinelli MD I reviewed the patient's care rn provided by the Advanced Practice Provider and agree with the diagnosis and treatment plan. Disposition Summary: 04/29/24 16:55 Discharge Ordered Notes: Location: Home kb Condition: Stable kb Diagnosis - Viral infection, unspecified kb Followup: kb - With: Emergency Department - When: As needed - Reason: Worsening of condition Followup: kb - With: Private Physician - When: 2 - 3 days - Reason: Recheck today's complaints, Continuance of care, Re-evaluation by your physician Discharge Instructions: - Discharge Summary Sheet kb - Viral Illness, Adult kb Forms: - Medication Reconciliation Form kb - Antibiotic Education kb - Prescription Opioid Use kb - Patient Portal Instructions kb - Leadership Thank You Letter kb - Work release form ll1 Signatures: Dispatcher [employer] EDJeni Sanz, CROSSBAR SWITCH ADJUSTER-C CROSSBAR SWITCH ADJUSTER-Ckb Ba Marinelli MD MD rn Martinez, Clarissa, RN RN cm10 Naseem Lua RN ll1 Corrections: (The following items were deleted from the chart) 04/29 18:15 18:15 Constitutional: This is a well developed, well nourished patient who is awake, kb alert, and in no acute distress. Head/Face: Normocephalic, atraumatic. ENT: Moist Mucous membranes Cardiovascular: Regular rate Respiratory: Respirations even and unlabored. No increased work of breathing. Talking in full sentences Abdomen/GI: Soft, non-tender. No distention Skin: Warm, dry with normal turgor. Normal color. MS/ Extremity: Pulses equal, no cyanosis. Neurovascular intact. Full, normal range of motion. Neuro: Awake and alert, GCS 15, oriented to person, place, time, and situation. kb 18:20 18:16 Pt is a 23 year old female who presents for bodyaches, diarrhea and fever that kb started this morning. Reports right lateral abd pain that has been intermittent for a long time. Denies n/v. kb
[2024-04-29 17:29] VITALS: O2SAT 100
[2024-04-29 17:30] VITALS: BP 117/85; TEMP 100.2
== END 2024-04-29 17:06 | disposition home or self-care (01) ==
LOC: ER 14:59
DX: B34.9 Viral infection, unspecified (principal); Z11.52 Encounter for screening for COVID-19
CPT/HCPCS: 36415; 81001; 87070; 87081; 87804; 87811; 99283

== ENCOUNTER 2024-11-23 20:40 | Emergency (ER) | payer SELFPAY ==
[2024-11-23] MEDS ORDERED: methocarbamoL 750 MG TAB ONE (21:07)
[2024-11-23] MEDS ORDERED: TRAMADOL HCL 50 MG TAB ONE (21:07)
[2024-11-23] MEDS ORDERED: IBUPROFEN 400 MG TAB ONE (21:07)
[2024-11-23] MEDS ORDERED: PROMETHAZINE 25 MG TABLET ONE (21:07)
--- NOTE | 2024-11-23 21:26 | RAD REPORT ---
Exam:Foot Left 3 View CLINICAL HISTORY: Left foot pain FINDINGS: No fracture or dislocation seen. Mild hallux valgus deformity.
--- NOTE | 2024-11-23 23:09 | ER ---
Nurse's Notes [facility] Name: Soren Castro Age: 24 yrs Sex: Male : 2000 Arrival Date: 11/23/2024 Time: 20:40 Bed 12 Private MD: Diagnosis: Crushing injury of left foot;Acute left foot contusion with hematoma and discoloration Presentation: 11/23 20:58 Chief complaint: Left foot pain, swelling, and bruising after hit with horseshoe 2 days hb agio. Coronavirus screen: At this time, the client does not indicate any symptoms associated with coronavirus-19. Ebola Screen: No symptoms or risks identified at this time. Initial Sepsis Screen: Does the patient meet any 2 criteria? No. Patient's initial sepsis screen is negative. Does the patient have a suspected source of infection? No. Patient's initial sepsis screen is negative. Risk Assessment: Do you want to hurt yourself or someone else? Patient reports no desire to harm self or others. Onset of symptoms was November 21, 2024. 20:58 Method Of Arrival: Ambulatory hb 20:58 Acuity: SANTOS 4 hb Historical: - Allergies: 21:00 No Known Allergies; hb - Home Meds: 21:00 None [Active]; hb - PMHx: 21:00 scoliosis; hb - PSHx: 21:00 None; hb - Immunization history:: Adult Immunizations up to date. - Infectious Disease History:: Denies. - Social history:: Smoking status: Patient reports the use of cigarette tobacco products, Reported history of juuling and/or vaping. - Family history:: not pertinent. Screenin:13 [facility] ED Fall Risk Assessment (Adult) History of falling in the last 3 months, dd2 including since admission No falls in past 3 months (0 pts) Confusion or Disorientation No (0 pts) Intoxicated or Sedated No (0 pts) Impaired Gait No (0 pts) Mobility Assist Device Used No (0 pt) Altered Elimination No (0 pt) Score/Fall Risk Level 0 - 2 = Low Risk Oriented to surroundings, Maintained a safe environment, Educated pt \T\ family on fall prevention, incl call for assistance when getting out of bed, Assessed \T\ reinforced patient's understanding of fall precautions, Hourly rounding (assess needs \T\ fall precautionary measures) done. Abuse screen: Denies threats or abuse. Denies injuries from another. Nutritional screening: No deficits noted. Tuberculosis screening: No symptoms or risk factors identified. Assessment: 21:13 General: Appears in no apparent distress. uncomfortable, Behavior is calm, cooperative, dd2 appropriate for age. Pain: Complains of pain in left foot Pain currently is 7 out of 10 on a pain scale. Neuro: No deficits noted. Cardiovascular: No deficits noted. Respiratory: No deficits noted. GI: No deficits noted. No signs and/or symptoms were reported involving the gastrointestinal system. : No deficits noted. No signs and/or symptoms were reported regarding the genitourinary system. EENT: No deficits noted. No signs and/or symptoms were reported regarding the EENT system. Derm: No deficits noted. No signs and/or symptoms reported regarding the dermatologic system. Musculoskeletal: Circulation, motion, and sensation intact. Range of motion: limited in left ankle Tenderness present in left foot. 21:13 Musculoskeletal: Swelling present in left ankle. dd2 Vital Signs: 20:58 BP 156 / 96; Pulse 86; Resp 16; Temp 98; Pulse Ox 100% on R/A; Weight 72.57 kg; Height hb 5 ft. 6 in. ; Pain 6/10; 23:45 BP 137 / 84; Pulse 81; Resp 16; Pulse Ox 100% on R/A; dd2 20:58 Body Mass Index 25.82 (72.57 kg, 167.64 cm) hb 20:58 Pain Scale: Adult hb Ogden Coma Score: 21:13 Eye Response: spontaneous(4). Motor Response: obeys commands(6). Verbal Response: dd2 oriented(5). Total: 15. 11/24 18:54 Eye Response: spontaneous(4). Motor Response: obeys commands(6). Verbal Response: sp4 oriented(5). Total: 15. ED Course: 11/23 20:49 Patient arrived in ED. cj3 20:52 Portillo Camejo MD is Attending Physician. sp4 21:00 Triage completed. hb 21:00 Arm band placed on. hb 21:09 Foot Left 3 View XRAY In Process Unspecified. EDMS 21:13 Patient has correct armband on for positive identification. Bed in low position. Call dd2 light in reach. Side rails up X 1. Provided Education on: medication, procedures. Client placed on continuous cardiac and pulse oximetry monitoring. NIBP monitoring applied. Door closed. Noise minimized. Pillow given. Verbal reassurance given. 21:13 No provider procedures requiring assistance completed. Patient did not have IV access dd2 during this emergency room visit. Patient maintains SpO2 saturation greater than 95% on room air. 21:59 KENNY SALTER, RN is Primary Nurse. dd2 Administered Medications: 21:11 Drug: Ibuprofen PO 800 mg PO once Route: PO; hb 21:41 Follow up: Response: No adverse reaction dd2 21:11 Drug: traMADol PO 50 mg PO once Route: PO; hb 21:41 Follow up: Response: No adverse reaction dd2 21:11 Drug: Methocarbamol PO 750 mg PO once Route: PO; hb 21:41 Follow up: Response: No adverse reaction dd2 21:11 Drug: Promethazine PO 25 mg PO once Route: PO; hb 21:41 Follow up: Response: No adverse reaction dd2 Medication: 21:13 VIS not applicable for this client. dd2 Outcome: 23:09 Discharge ordered by MD. henley 23:45 Discharged to home ambulatory, with crutches, dd2 23:45 Condition: stable 23:45 Discharge instructions given to patient, Instructed on discharge instructions, follow up and referral plans. medication usage, Demonstrated understanding of instructions, follow-up care, medications, Prescriptions given X 1, 23:47 Patient left the ED. dd2 Signatures: Dispatcher [employer] EDMS Jess Carey RN RN hb Potepalov, Sergey, MD MD sp4 DAVIS, DIANA, RN RN dd2 Simi Dee cj3
--- NOTE | 2024-11-23 23:10 | EDPHYS ---
Physician Documentation [facility] Name: Soren Castro Age: 24 yrs Sex: Male : 2000 Arrival Date: 11/23/2024 Time: 20:40 Bed 12 Private MD: ED Physician Portillo Camejo HPI: 11/23 20:53 This 24 yrs old Male presents to ER via Unassigned with complaints of Foot sp4 Injury - LT. 11/24 18:54 Patient presents with left foot pain and discoloration starting 2 days ago. Patient sp4 reported crushing injury to the left foot. There is left foot dorsal swelling and discoloration to the toes. Historical: - Allergies: 11/23 21:00 No Known Allergies; hb - Home Meds: 21:00 None [Active]; hb - PMHx: 21:00 scoliosis; hb - PSHx: 21:00 None; hb - Immunization history:: Adult Immunizations up to date. - Infectious Disease History:: Denies. - Social history:: Smoking status: Patient reports the use of cigarette tobacco products, Reported history of juuling and/or vaping. - Family history:: not pertinent. ROS: 11/24 18:54 Constitutional: Negative for fever, chills, and weight loss, positive for left foot sp4 pain and injury and discoloration All other systems are negative, Exam: 18:54 Constitutional: This is a well developed, well nourished patient who is awake, alert, sp4 and in no acute distress. Head/Face: Normocephalic, atraumatic. Eyes: Pupils equal round and reactive to light, extra-ocular motions intact. Lids and lashes normal. Conjunctiva and sclera are not injected. Cornea within normal limits. Periorbital areas with no swelling, redness, or edema. ENT: Nares patent. No nasal discharge, no septal abnormalities noted. Tympanic membranes are normal and external auditory canals are clear. Oropharynx with no redness, swelling, or masses, exudates, or evidence of obstruction, uvula midline. Mucous membranes moist. Neck: Trachea midline, no thyromegaly or masses palpated, and no cervical lymphadenopathy. Supple, full range of motion without nuchal rigidity, or vertebral point tenderness. Chest/axilla: Normal chest wall appearance and motion. Nontender with no deformity. No lesions are appreciated. Cardiovascular: Regular rate and rhythm with a normal S1 and S2. No gallops, murmurs, or rubs. Normal PMI, no JVD. No pulse deficits. Respiratory: Lungs have equal breath sounds bilaterally, clear to auscultation and percussion. No rales, rhonchi or wheezes noted. No increased work of breathing, no retractions or nasal flaring. Abdomen/GI: Soft, with normal bowel sounds. No distension or tympany. No guarding or rebound. No evidence of tenderness throughout. Back: No spinal tenderness. No costovertebral tenderness. Skin: Warm, dry with normal turgor. Normal color with no rashes, no lesions, and no evidence of cellulitis. MS/ Extremity: Pulses equal, no cyanosis. Neurovascular intact. Full, normal range of motion. Positive for left foot dorsal swelling, discoloration of the toes. Neuro: Awake and alert, GCS 15, oriented to person, place, time, and situation. Cranial nerves II-XII grossly intact. Motor strength 5/5 in all extremities. Sensory grossly intact. Psych: Awake, alert, with orientation to person, place and time. Behavior, mood, and affect are within normal limits Vital Signs: 11/23 20:58 BP 156 / 96; Pulse 86; Resp 16; Temp 98; Pulse Ox 100% on R/A; Weight 72.57 kg; Height hb 5 ft. 6 in. ; Pain 6/10; 23:45 BP 137 / 84; Pulse 81; Resp 16; Pulse Ox 100% on R/A; dd2 20:58 Body Mass Index 25.82 (72.57 kg, 167.64 cm) hb 20:58 Pain Scale: Adult hb Ambrose Coma Score: 21:13 Eye Response: spontaneous(4). Motor Response: obeys commands(6). Verbal Response: dd2 oriented(5). Total: 15. 11/24 18:54 Eye Response: spontaneous(4). Motor Response: obeys commands(6). Verbal Response: sp4 oriented(5). Total: 15. Procedures: 11/23 23:07 Splinting: Splint applied to left calf, left Achilles and left heel using Ortho 3D sp4 boot, Knee-high Ortho boot , cam boot. applied by nurse. Examined by me, post splint application: neurovascular intact, 2+ distal pulses palpable, brisk capillary refill noted, Patient tolerated well, Crutches provided advised to maintain boot and no weightbearing to left lower extremity for 2 weeks.. MDM: 22:59 ED course: Exam:Foot Left 3 View CLINICAL HISTORY: Left foot pain FINDINGS: No fracture sp4 or dislocation seen. Mild hallux valgus deformity. . 23:07 Differential diagnosis: fracture, sprain, arthritis, gout, cellulitis. Data reviewed: sp4 vital signs, nurses notes, radiologic studies. Consideration of Admission/Observation Escalation of care including admission/observation considered. 23:09 Medical Screening Exam initiated sp4 11/24 18:54 ED course: Stable for discharge home.. sp4 11/23 20:57 Order name: Foot Left 3 View XRAY; Complete Time: 23:00 sp4 11/23 23:00 Order name: Crutches; Complete Time: 23:45 sp4 11/23 23:00 Order name: Ortho shoe: Ortho boot to left foot; Complete Time: 23:45 sp4 Administered Medications: 11/23 21:11 Drug: Ibuprofen PO 800 mg PO once Route: PO; hb 21:41 Follow up: Response: No adverse reaction dd2 21:11 Drug: traMADol PO 50 mg PO once Route: PO; hb 21:41 Follow up: Response: No adverse reaction dd2 21:11 Drug: Methocarbamol PO 750 mg PO once Route: PO; hb 21:41 Follow up: Response: No adverse reaction dd2 21:11 Drug: Promethazine PO 25 mg PO once Route: PO; hb 21:41 Follow up: Response: No adverse reaction dd2 Disposition: 11/24 18:57 Chart complete. sp4 Disposition Summary: 11/23/24 23:09 Discharge Ordered Problem: new sp4 Symptoms: have improved sp4 Condition: Stable sp4 Diagnosis - Crushing injury of left foot sp4 - Acute left foot contusion with hematoma and discoloration sp4 Followup: sp4 - With: Private Physician - When: As needed - Reason: Discharge Instructions: - Discharge Summary Sheet sp4 - Foot Contusion, [id number] sp4 Forms: - Patient Portal Instructions sp4 Prescriptions: - Ibuprofen 800 mg Oral Tablet - take 1 tablet ORAL route every 8 hours As needed take with food; 30 tablet; sp4 Refills: 0, Product Selection Permitted Signatures: Dispatcher [employer] Jess Ochoa, RN RN Portillo Camejo MD MD sp4 KENNY SALTER RN dd2
[2024-11-23 23:52] VITALS: TEMP 98; O2SAT 100
[2024-11-23 23:53] VITALS: BP 137/84
== END 2024-11-23 23:47 | disposition home or self-care (01) ==
LOC: ER 20:40
DX: S90.32XA Contusion of left foot, initial encounter (principal)
CPT/HCPCS: 99283; Q0169